=== PATIENT | male | born 1975 | race African-American/Black ===

== ENCOUNTER 2017-06-25 10:37 | Emergency (ER) | payer MEDICAID ==
[~2017-06-25] VITALS: Ht 175.3 cm; Wt 77.0 kg
[2017-06-25] MEDS ORDERED: LORAZEPAM 1MG TABLET PO ONE (11:30)
[2017-06-25] MEDS ORDERED: SODIUM CHLORIDE 0.9% 1,000 ML IV ONE (11:30)
[2017-06-25 11:43] LABS: BASOPHILS % 0.5 % (0.0-2.0); EOSINOPHILS % 0.7 % (0.0-5.0); HEMATOCRIT. 44.4 % (42.0-52.0); HEMOGLOBIN. 15.1 g/dL (14.0-18.0); LYMPHOCYTES % 18.5 % (20.0-50.0); MEAN CORPUSCULAR HEMOGLOBIN 30.5 pg (28.0-32.0); MEAN CORPUSCULAR VOLUME 89.7 fL (80.0-94.0); MEAN PLATELET VOLUME 7.9 fl (7.4-10.4); MONOCYTES % 10.7 % (2.0-8.0); NEUTROPHILS % 69.6 % (40.0-76.0); PLATELET 258 x1000/uL (130-400); RED BLOOD CELL COUNT 4.95 mill/uL (4.7-6.1); RED CELL DISTRIBUTION WIDTH 13.9 % (11.6-14.6)
[2017-06-25 11:48] LABS: INR 1.2; PROTHROMBIN TIME 12.2 sec (9.4-11.6)
[2017-06-25 12:00] LABS: CARBON DIOXIDE 30 mEq/L (21-32); CHLORIDE 103 mEq/L (98-107)
[2017-06-25 12:35] VITALS: BP 119/68
== END 2017-06-25 12:46 | disposition home or self-care (01) ==
LOC: ER 12:44
DX: G40.909 Epilepsy, unspecified, not intractable, without status epilepticus (principal); F12.10 Cannabis abuse, uncomplicated
CPT/HCPCS: 36415; 80053; 80165; 85025; 85610; 99284; J7030; Z7610

== ENCOUNTER 2018-11-15 16:43 | Emergency (ER) | payer MEDICAID ==
[~2018-11-15] VITALS: Ht 175.3 cm; Wt 70.0 kg
[2018-11-15] MEDS ORDERED: IBUPROFEN 600MG TABLET PO STA (17:25)
[2018-11-15] MEDS ORDERED: ACETAMINOPHEN 325MG TABLET PO STA (17:25)
[2018-11-15] MEDS ORDERED: ONDANSETRON 4MG ODT PO STA (17:25)
[2018-11-15 17:47] LABS: BASOPHILS % 0.6 % (0.0-2.0); EOSINOPHILS % 0.6 % (0.0-5.0); HEMATOCRIT. 41.7 % (42.0-52.0); HEMOGLOBIN. 14.2 g/dL (14.0-18.0); LYMPHOCYTES % 35.8 % (20.0-50.0); MEAN CORPUSCULAR HEMOGLOBIN 31.5 pg (28.0-32.0); MEAN CORPUSCULAR VOLUME 92.8 fL (80.0-94.0); MEAN PLATELET VOLUME 7.5 fl (7.4-10.4); PLATELET 190 x1000/uL (130-400); RED CELL DISTRIBUTION WIDTH 13.7 % (11.6-14.6)
[2018-11-15 17:52] VITALS: BP 107/57
[2018-11-15 17:52] LABS: CHLORIDE 107 mEq/L (98-107)
== END 2018-11-15 18:48 | disposition home or self-care (01) ==
LOC: ER 16:43
DX: B34.9 Viral infection, unspecified (principal); G40.909 Epilepsy, unspecified, not intractable, without status epilepticus; F12.10 Cannabis abuse, uncomplicated; F17.210 Nicotine dependence, cigarettes, uncomplicated
CPT/HCPCS: 36415; 71045; 80053; 85025; 87804; 99284; Q0162

== ENCOUNTER 2020-03-03 22:02 | Emergency (ER) | payer MEDICAID ==
[~2020-03-03] VITALS: Ht 165.1 cm; Wt 68.4 kg
[2020-03-04 00:26] LABS: BASOPHILS % 0.6 % (0.0-2.0); EOSINOPHILS % 1.9 % (0.0-5.0); HEMATOCRIT. 43.8 % (42.0-52.0); LYMPHOCYTES % 41.9 % (20.0-50.0); MEAN CORPUSCULAR HEMOGLOBIN 32.4 pg (28.0-32.0); MEAN CORPUSCULAR VOLUME 94.8 fL (80.0-94.0); MEAN PLATELET VOLUME 7.7 fl (7.4-10.4); MONOCYTES % 10.9 % (2.0-8.0); NEUTROPHILS % 44.7 % (40.0-76.0); PLATELET 200 x1000/uL (130-400); RED BLOOD CELL COUNT 4.62 mill/uL (4.7-6.1); RED CELL DISTRIBUTION WIDTH 13.2 % (11.6-14.6)
[2020-03-04 00:32] LABS: CHLORIDE 104 mEq/L (98-107)
[2020-03-04 00:36] LABS: INR 1.1; PROTHROMBIN TIME 11.9 sec (9.6-11.0)
[2020-03-04 01:40] LABS: CLARITY URINE CLEAR (CLEAR); COLOR URINE DARK YELLOW (YELLOW); KETONES URINE TRACE (NEGATIVE); LEUKOCYTE ESTERASE URINE TRACE (NEGATIVE); NITRITE URINE NEGATIVE (NEGATIVE); OCCULT BLOOD URINE NEGATIVE (NEGATIVE); PH URINE 5.5 (4.5-8.0); PROTEIN URINE TRACE (NEGATIVE); SPECIFIC GRAVITY URINE 1.042 (1.005-1.030)
[2020-03-04 03:07] VITALS: BP 99/63
== END 2020-03-04 03:14 | disposition home or self-care (01) ==
LOC: ER 22:02
DX: K92.2 Gastrointestinal hemorrhage, unspecified (principal); F12.10 Cannabis abuse, uncomplicated
CPT/HCPCS: 36415; 80053; 81003; 85025; 86850; 86900; 99283